=== PATIENT | male | born 1945 | race Caucasian/White ===

== ENCOUNTER 2017-03-07 09:00 | Inpatient (IN) | payer MEDICARE, OTHER ==
[~2017-03-07] VITALS: Ht 180.3 cm; Wt 78.4 kg
[2017-03-07] MEDS ORDERED: SODIUM CHLORIDE 0.9% 1,000 ML IV ONE (09:30)
[2017-03-07 09:31] LABS: HEMATOCRIT 38.8 % (39.2-51.8); HEMOGLOBIN 13.3 g/dL (13.7-18.0); WHITE BLOOD COUNT 4.1 x10^3/uL (3.4-10)
[2017-03-07 09:43] LABS: ASPARTATE AMINO TRANSFERASE 33 U/L (15-37); BLOOD UREA NITROGEN 16 mg/dL (7-18)
[2017-03-07 09:50] LABS: IS PT STATUS REG ER OR PRE ER? YES
[2017-03-07 12:14] VITALS: BP 175/84
[2017-03-07] MEDS ORDERED: ACETAMINOPHEN 325 MG TABLET PO PRN (13:30)
[2017-03-07] MEDS ORDERED: BISACODYL 10 MG SUPP PR PRN (13:30)
[2017-03-07] MEDS ORDERED: POLYETHYLENE GLYCOL 17 GM PACKET PO PRN (13:30)
[2017-03-07] MEDS ORDERED: DOCUSATE 100 MG CAPSULE PO PRN (13:30)
[2017-03-07] MEDS ORDERED: ENOXAPARIN 40 MG/0.4 ML SQ SCH (14:30)
[2017-03-07 14:49] LABS: IS PT STATUS REG ER OR PRE ER? NO
[2017-03-07] MEDS: SODIUM CHLORIDE 0.9% 1,000 ML IV SCH (16:33)
[2017-03-07 17:27] VITALS: BP_SYST 168; BP_SYST 184; BP_DIAS 83; BP_DIAS 84
[2017-03-07 19:33] LABS: IS PT STATUS REG ER OR PRE ER? NO
[2017-03-07 19:35] VITALS: BP 165/77
[2017-03-07] MEDS: OXYcodone IR 5MG TABLET PO PRN (21:39)
[2017-03-07] MEDS ORDERED: DIPHENHYDRAMINE 25 MG CAPSULE PO PRN (23:30)
[2017-03-08 02:22] VITALS: BP 153/70
[2017-03-08] MEDS: SODIUM CHLORIDE 0.9% 1,000 ML IV SCH (02:28)
[2017-03-08 05:40] LABS: HEMATOCRIT 37.3 % (39.2-51.8); HEMOGLOBIN 12.5 g/dL (13.7-18.0); WHITE BLOOD COUNT 3.9 x10^3/uL (3.4-10)
[2017-03-08 05:54] LABS: BLOOD UREA NITROGEN 18 mg/dL (7-18)
[2017-03-08] MEDS ORDERED: ASPIRIN 325 MG TABLET EC PO SCH (06:00)
[2017-03-08 06:06] LABS: ASPARTATE AMINO TRANSFERASE 32 U/L (15-37)
[2017-03-08] MEDS ORDERED: FENTANYL 50 MCG PATCH ONE (08:23)
[2017-03-08] MEDS ORDERED: FENTANYL 50 MCG PATCH TD SCH ×2 (08:30→09:00)
[2017-03-08] MEDS ORDERED: LORazepam 2 MG/ML, 1ML ONE (08:34)
[2017-03-08] MEDS: OXYcodone IR 5MG TABLET PO PRN (08:36)
[2017-03-08 08:45] VITALS: BP 150/70
[2017-03-08 09:00] VITALS: BP 151/78
[2017-03-08] MEDS ORDERED: LORazepam 2 MG/ML, 1ML IVPush PRN (09:00)
[2017-03-08 09:57] VITALS: BP 147/80
[2017-03-08 13:03] VITALS: BP 142/77
[2017-03-10] MEDS ORDERED: FENTANYL REMOVE PATCH NOTE XX SCH (09:00)
== END 2017-03-08 14:15 | disposition home or self-care (01) | DRG 683 ==
LOC: ED 09:43 → EDIP 11:10 → 5SO 12:02 → DCLOUNGE 03-08 13:56
PROVIDERS: ADMIT Family Medicine; ATTEND Family Medicine
DX: N17.9 Acute kidney failure, unspecified (principal); G45.9 Transient cerebral ischemic attack, unspecified; I10 Essential (primary) hypertension; R55 Syncope and collapse; E16.2 Hypoglycemia, unspecified; G89.29 Other chronic pain; N40.0 Benign prostatic hyperplasia without lower urinary tract symptoms; Y92.481 Parking lot as the place of occurrence of the external cause; Z82.5 Family history of asthma and other chronic lower respiratory diseases; Z85.820 Personal history of malignant melanoma of skin; Z87.11 Personal history of peptic ulcer disease; Z88.0 Allergy status to penicillin; Z88.8 Allergy status to other drugs, medicaments and biological substances; M54.9 Dorsalgia, unspecified
CPT/HCPCS: 36415; 70450; 70551; 71010; 80053; 80061; 81003; 84443; 84484; 85025; 85610; 85730; 93005; 93306; J1650; J2060; J7030; Q0163